=== PATIENT | female | born 1965 | race Caucasian/White ===

== ENCOUNTER 2017-09-17 05:26 | Inpatient (IN) ==
[2017-09-17 05:46] VITALS: BMI 27.9
[2017-09-17] MEDS ORDERED: CEFAZOLIN 1 G INJECTION IVP ONE (05:52)
[2017-09-17] MEDS ORDERED: ACETAMINOPHEN 500 MG TABLET PO ONE (06:00)
[2017-09-17] MEDS ORDERED: METOCLOPRAMIDE 10mg/2ml INJECTION IVP ONE (06:00)
[2017-09-17] MEDS ORDERED: LIDOCAINE 1% (10mg/ml) 2mL INJ PF SDV ID ONE (06:00)
[2017-09-17] MEDS ORDERED: ONDANSETRON 4 MG/2 ML INJECTION IVP ONE (06:00)
[2017-09-17] MEDS ORDERED: TRANEXAMIC ACID 1,000 MG in NS 100 ML IV ONE ×2 (06:00→07:00)
[2017-09-17] MEDS ORDERED: MELOXICAM 15 MG TABLET PO ONE (06:00)
[2017-09-17] MEDS ORDERED: FAMOTIDINE PB 20 MG/50 ML BAG IV ONE (06:00)
[2017-09-17] MEDS ORDERED: DEXAMETHASONE 4 MG/ML INJECTION IVP ONE (06:00)
[2017-09-17] MEDS: LR 1,000 ML IV SCH ×2 (06:06→08:00)
[2017-09-17] MEDS: NOZIN NASAL SWAB NAS SCH ×6 (06:09→21:37)
--- NOTE | 2017-09-17 06:41 | Anesthesia Preoperative Report ---
Anesthesia Preoperative Record - Date and Time Date: 09/17/17 Preoperative Diagnosis: Lt AGUSTIN M16.12 NPO Since Date: 09/16/17 NPO Since Time: 00:00 Allergies/Adverse Reactions: Allergies Allergy/AdvReac Type Severity Reaction Status Date / Time morphine Allergy Unknown Itching Verified 08/21/17 13:58 codeine AdvReac Unknown 'I felt Verified 08/21/17 13:58 weird' - Vital Signs Vital Signs: Temperature 97.9 F 09/17/17 05:44 Pulse Rate 76 09/17/17 06:09 Respiratory Rate 14 09/17/17 05:44 Blood Pressure 142/90 H 09/17/17 05:44 Pulse Oximetry 100 09/17/17 05:44 Height and Weight: Height 1.6 m Weight 71.5 kg Body Mass Index 27.9 - Medications Inpatient Medications: Current Medications Epinephrine HCl 0.25 mg/Bupivacaine HCl 30 ml/Ketorolac Tromethamine 60 mg/ Sodium Chloride 62.25 mls @ 0 mls/hr OPSITE INTRAOP ONE; Per Protocol PRN Reason: Protocol Stop: 09/17/17 08:01 Tranexamic Acid 1,000 mg/ (Sodium Chloride) 110 mls @ 660 mls/hr IV INTRAOP ONE Stop: 09/17/17 07:09 Lactated Ringer's (Lactated Ringers) 1,000 mls @ 50 mls/hr IV .Q20H [facility] Last Admin: 09/17/17 06:06 Dose: 50 mls/hr Isopropyl Alcohol (Nozin Nasal Swab) 1 each KEVIN Q1M LOLIS Stop: 09/17/17 10:03 Last Admin: 09/17/17 06:17 Dose: 1 each Sodium Chloride (Iv Flush) 10 - 80 ml IV PRN PRN PRN Reason: Flushing Home Medications: Home Medications Medication Instructions Recorded Confirmed Type Claritin (Loratadine) 10 mg tablet 10 mg PO Q24H PRN 01/23/17 09/17/17 History bee pollen 550 mg capsule 550 mg PO BID cap 01/23/17 09/17/17 History vitamins B1 B6 B12 tablet 1 tab PO DAILY 02/05/17 09/17/17 History Acetaminophen [Tylenol] 1,000 mg PO Q5H PRN 08/21/17 09/17/17 History Agilease 1 cap PO BID 08/21/17 09/17/17 History Calcitriol [Rocaltrol] 0.25 mcg PO 3XW 08/21/17 09/17/17 History Calcium Carbonate [Calcium] 1,000 mg PO DAILY 08/21/17 09/17/17 History Levothyroxine Tab [Synthroid] 125 mcg PO HS 08/21/17 09/17/17 History [place]'s wort 300 mg capsule 300 mg PO DAILY 08/21/17 09/16/17 History Cholecalciferol (Vitamin D3) 1 cap PO DAILY 09/17/17 09/17/17 History [Vitamin D3] Is Patient on Beta Renetta?: No - Medical History Respiratory: DENIES: Sleep Apnea Neuro/Musculoskeletal: Reports: HX.MS.OSAR (left hip) Renal/Endocrine: Reports: Thyroid Disease (Hx thyroid cancer) Other History: Reports: Cancer (THYROID-TREATED W/ SURGERY AND RADIOACTIVE COCKTAIL) - Surgical History Endocrine Surgery/Treatments: Reports: Thyroidectomy (x2) Anesthesia Reactions: None Hx Family Anesthesia Reaction: No History of Motion Sickness: No - Social History Smoking Status: Never smoker Hx Chewing Tobacco Use: No Second Hand Exposure: No Substance Use Type: does not use Alcohol Intake Frequency: does not drink - Pertinent Findings EKG: Sinus Rhythm - Physical Exam Respiratory Exam: Present: lungs clear, bilateral breath sounds equal Cardiovascular Exam: Present: regular rate and rhythm - Airway Assessment Mallampati Score: II Neck Extension: good Overall Assessment: no airway concerns - ASA ASA Score: 2 - Plan Anesthesia: General Inhalation Gases, Neuroaxial Regional/Trunk Block: Spinal - Discussion Discussion: Discussed risks/options/alternatives of anesthesia and questions answered. Patient consents. Nursing pain assessment noted. Present for Discussion: family member Attestation Statement: Prior to the delivery of any anesthetic medication, I examined the patient, developed the plan, obtained the patient's consent and discussed the risk and benefits of the procedure with the patient/guardian. - Additional Information Seen by Anesthesia: Yes
[2017-09-17] MEDS ORDERED: FentaNYL 250 MCG/5 ML INJECTION ONE (06:52)
[2017-09-17] MEDS ORDERED: MIDAZOLAM 2mg/2ml INJECTION ONE (06:52)
[2017-09-17] MEDS ORDERED: KETAMINE 500 MG/10 ML INJECTION ONE (06:53)
[2017-09-17] MEDS ORDERED: BUPIVACAINE 0.5% (5mg/ml) PF 30ml INJ SDV ONE (06:53)
[2017-09-17] MEDS ORDERED: PROPOFOL 500 MG/50 ML VIAL ONE ×2 (06:54→08:48)
[2017-09-17] MEDS ORDERED: SEVOFLURANE 250ml LIQUID IH ONE (06:55)
[2017-09-17] MEDS ORDERED: VANCOMYCIN 1,000 MG INJECTION ONE (07:37)
[2017-09-17] MEDS ORDERED: VANCOMYCIN 1,000 MG INJECTION IAR ONE (07:49)
[2017-09-17] MEDS ORDERED: EPINEPHrine PF 0.25 MG, BUPIVACAINE 0.25% PF 30 ML, KETOROLAC INJ 60 MG in NS 30 ML OPSITE ONE (08:00)
--- NOTE | 2017-09-17 09:07 | Operative Note ---
- Procedure Preoperative Diagnosis: Left hip primary degenerative joint disease Postoperative Diagnosis: Same as preoperative diagnosis. Surgeon: Carlin Barber MD Internet Retailer: Rosanna Lowe Complications: None. Anesthesia: Spinal. Estimated Blood Loss: See Anesthesia Record. Fluids: Please see Anesthesia Record. Description of Procedure: Mrs. Saunders and her left hip were identified and marked in the preoperative holding area. She was brought back to the operating suite and spinal anesthetic was administered. She was then placed in a lateral decubitus position with her left hip up. The left lower extremity was prepped and draped in my normal sterile fashion. Timeout was performed. The [employer] robotic arm was used to assist with the surgery. A pelvic array was placed into the iliac crest through three small incisions. A direct superior approach was utilized. An approximately 13 cm incision was made in the skin and dissection carried down to the muscle fascia which was then split in line with skin incision. A The short external rotators were identified and tagged and detached. A capsulotomy was performed and the hip dislocated. A femoral neck osteotomy was performed at the pre-templated level measuring down from the femoral head 47mm. The head was removed and acetabulum exposed. Labrum was removed. She had a large anterior labral tear. The acetabulum was then registered with the robot. The robotic arm was then used to ream with a 47 reamer. I then placed a 48 mm Trident cup in 40 of tilt and 25 of anteversion. A liner was then placed. The proximal femur was exposed and prepared with a cookie cutter followed by reaming and broaching to a size 3. Planer was then used. We trialed with a 0 head. This was short but stable weak retrial with a +5 head this felt much better as far as leg length. After thorough irrigation a final Accolade 2 size 3 stem with 132 neck was placed. Leg length and offset were checked with the robot and were good. A final +5 ceramic head was placed and the hip reduced. Betadine solution was used to irrigate throughout the case. It was followed by normal saline irrigation. Joint cocktail was injected throughout soft tissue. The capsulotomy was repaired with Ethibond. Short external rotators were also repaired with Ethibond. 1 g of vancomycin powder was placed into the wound. The muscle fascia was then repaired with #1 Vicryl. I then left my front office medical assistant to close the subcutaneous tissue with 2-0 Vicryl followed by running 4-0 Monocryl skin followed by Dermabond and a sterile dressing. The patient with any placed back into supine position and taken to recovery room in the care of anesthesia.
[2017-09-17] MEDS ORDERED: SALINE FLUSH 10ml SYRINGE IV PRN (09:56)
--- NOTE | 2017-09-17 10:01 | Anesthesia Postoperative Note ---
- Date and Time Date: 09/17/17 Time: 10:00 - Status Patient Participated in Evaluation: Patient Participated in Person Vital Signs: Temperature 97.9 F 09/17/17 05:44 Pulse Rate 76 09/17/17 06:09 Respiratory Rate 14 09/17/17 05:44 Blood Pressure 142/90 H 09/17/17 05:44 Pulse Oximetry 100 09/17/17 05:44 Respiratory Function: Airway Patent, Regular Respirations Cardiovascular Function: Regular Pulse Mental Status: Alert and Oriented Pain Intensity: 0 Hydration: IV Infusing Complications During Recover: None Apparent - Follow-Up Instructions Instructions: Per Surgeon
--- NOTE | 2017-09-17 10:18 | XRay Report ---
Indication: postoperative image PROCEDURE: XR pelvis w/ 1 view LT hip: Encounter: Initial Comparison: August 21, 2017 Findings: Postoperative changes of left total hip replacement are seen. There is expected postoperative subcutaneous gas. No evidence of hardware failure or acute fracture. No retained radiopaque surgical instruments or sponges seen. Impression: New left total hip prosthesis without evidence of immediate complication. .
[2017-09-17] MEDS ORDERED: NOZIN NASAL SWAB NAS ONE (10:41)
[2017-09-17] MEDS ORDERED: LORazepam 1 MG TABLET PO PRN (10:41)
[2017-09-17] MEDS ORDERED: DiphenhydrAMINE 50 MG/ML INJECTION IVP PRN (10:41)
[2017-09-17] MEDS ORDERED: DiphenhydrAMINE 25 MG CAPSULE PO PRN (10:41)
[2017-09-17] MEDS: NS 1,000 ML IV SCH (11:06)
[2017-09-17] MEDS: TRAMADOL 50 MG TABLET PO PRN ×2 (11:31→19:41)
[2017-09-17] MEDS: ACETAMINOPHEN 325 MG TABLET PO SCH ×3 (13:47→20:35)
[2017-09-17] MEDS: CEFAZOLIN 1 G in NS 100 ML IV SCH ×2 (14:25→22:26)
[2017-09-17] MEDS: ONDANSETRON 4 MG/2 ML INJECTION IVP PRN ×2 (15:15→19:41)
[2017-09-17] MEDS: NAPROXEN 220 MG TABLET PO SCH (18:03)
[2017-09-17] MEDS: ASPIRIN *EC* 81 MG TABLET PO SCH (20:35)
[2017-09-17] MEDS: DOCUSATE SODIUM 100 MG CAPSULE PO SCH (20:35)
[2017-09-17] MEDS ORDERED: SENNOSIDES 8.6 MG TABLET PO SCH (21:00)
[2017-09-17] MEDS ORDERED: LEVOTHYROXINE 125 MCG TABLET PO SCH (21:00)
[2017-09-18] MEDS: NS 1,000 ML IV SCH ×3 (03:45→13:41)
[2017-09-18] MEDS: TRAMADOL 50 MG TABLET PO PRN (04:59)
[2017-09-18] MEDS: NOZIN NASAL SWAB NAS SCH ×2 (04:59→13:01)
--- NOTE | 2017-09-18 08:00 | Orthopedic Progress Note ---
Date: Date: 09/18/17 Time: 756 Subjective/Severity of Illness: Mariama is lying in bed this morning. States she did really well overnight, ambulated the halls multiple times. Pain has been well controlled on Tramadol. Denies CP, SOA, nausea. Had one episode of vomiting after using IS last night. Otherwise, tolerating PO since. Orthopedic Exam Vital signs: Temperature 98.6 F 09/18/17 03:53 Pulse Rate 82 09/18/17 03:53 Respiratory Rate 16 09/18/17 03:53 Blood Pressure 134/69 09/18/17 03:53 Pulse Oximetry 99 09/18/17 03:53 - Constitutional General Appearance: Present: alert, orientated x3, well developed, well nourished - Respiratory Exam Present: non-labored - Cardiovascular Exam Present: pedal pulses intact - Extremities Exam Present: pulses intact. Absent: calf tenderness, Rekha's sign - Dressing Dressing: dry, intact, no drainage Comments: mepilex left hip, telfa dressing has scant serosanguineous drainage. - Neurological Exam Present: intact to light touch, no deficits - Labs Result Diagrams: 09/18/17 04:12 09/18/17 04:12 Abnormal lab results 09/18/17 09/18/17 Range/Units 04:12 04:12 Hgb 11.3 L (12-16) GM/DL Creatinine 0.6 L (0.7-1.2) mg/dL Glucose 114 H (65-110) MG/DL H & H 09/18/17 Range/Units 04:12 Hgb 11.3 L (12-16) GM/DL Orthopedic Assessment and Plan (1) Primary osteoarthritis of left hip Status: Acute Assessment and Plan: Current anti-coagulation protocol with ASA 81mg BID for VTE prophylaxis. SCD's for added protection PT/OT services to improve independent function. Discharge Planning per Case Management. - Anticoagulation Therapy Anticoagulation: ASA 81 mg PO BID x6 weeks Hospital Course Summary Disclaimer: The visit summary below is not to be considered part of the above Progress Note.
[2017-09-18] MEDS: ONDANSETRON 4 MG/2 ML INJECTION IVP PRN (08:33)
[2017-09-18 08:34] VITALS: RESP 18
[2017-09-18] MEDS ORDERED: POLYETHYL GLYCOL 3350 17gm PACKET PO SCH (09:00)
[2017-09-18] MEDS: NAPROXEN 220 MG TABLET PO SCH (09:03)
[2017-09-18] MEDS: ACETAMINOPHEN 325 MG TABLET PO SCH ×2 (09:03→12:47)
[2017-09-18] MEDS: DOCUSATE SODIUM 100 MG CAPSULE PO SCH (09:04)
[2017-09-18] MEDS: ASPIRIN *EC* 81 MG TABLET PO SCH (09:04)
[2017-09-18] MEDS ORDERED: SENNOSIDES 8.6 MG TABLET PO PRN (09:08)
[2017-09-18 11:57] VITALS: O2SAT 100
--- NOTE | 2017-09-18 12:27 | Discharge Summary ---
Orthopedic Discharge Info Date of admission: 09/17/17 05:26 Anticipated date of discharge: 09/18/17 Primary care physician: Ravi Cook MD Attending Physician: Emory Barber MD Consults: 09/17/17 05:49 Consult to Anesthesiology [CONS] Routine Reason For Exam: Preoperative Assessment 09/17/17 10:41 Case Management Consult [CONS] Routine Reason For Exam: Discharge Planning DME-Walker [CONS] Routine Height: 5 ft 3 in Weight: 71.5 kg Total Joint Outpatient Therapy [CONS] Routine Comment: Remove dressing in 2 weeks - Discharge Diagnosis (1) Primary osteoarthritis of left hip Status: Acute - Procedures Procedures: Left AGUSTIN 09/15/17. - Laboratory Result Diagrams: 09/18/17 04:12 09/18/17 04:12 Laboratory: Abnormal lab results 09/18/17 09/18/17 Range/Units 04:12 04:12 Hgb 11.3 L (12-16) GM/DL Creatinine 0.6 L (0.7-1.2) mg/dL Glucose 114 H (65-110) MG/DL H & H 09/18/17 Range/Units 04:12 Hgb 11.3 L (12-16) GM/DL Orthopedic Discharge HPI - HPI Comments This patient was admitted for elective surgical tx of end stage degenerative joint disease that failed to respond to conservative treatment. Further details of this is found in the admission H&P. Orthopedic Hospital Course Hospital course: 09/18/17 12:25 After appropriate preoperative clearance and signing of operative consent, the patient was given IV antibiotics, according to orthopedic protocol. The patient was taken to the operating room and underwent elective total hip arthroplasty. Following surgery, antibiotics were discontinued less than 24 hours according to joint protocol. Appropriate anticoagulants were initiated and SCDs added for DVT prevention. The dressing was clean, dry, and intact. Pain control was obtained via multimodal approach. Bowel motivation addressed with scheduled and PRN medications. Early mobilization was initiated through PT services. Discharge arrangements made by a collaborative effort between the patient and Case Management. Follow-up is scheduled in 2-3 weeks. Discharge instructions given by orthopedic providers and nursing staff at discharge. Discharge condition was good. Care extended to > 2 midnight stays?: No Discharge Plan - Med Rec/Dispo Referrals/Follow Up: Emory Barber MD [Physician] - 10/09/17 9:00 am Anjel[place] [facility] [place] Additional Instructions: [facility] ON 09/20/2017 AT 10:45AM FOR PHYSICAL THERAPY CASSID[place]. PHONE , OPTION 3. Prescriptions: New Acetaminophen [Tylenol] 650 mg PO QID tablet Docusate Sodium [Colace] 100 mg PO BID capsule Milk of Magnesia [Mom] 30 ml PO DAILY udc Naproxen [Aleve (Naproxen) 220 mg] 440 mg PO BIDWM tablet PEG 3350 17gm PACKET [Miralax] 17 gm PO DAILY packet Tramadol [Ultram] 50 - 100 mg PO Q6H PRN #60 tab PRN Reason: Pain Aspirin *EC* [Ecotrin] 81 mg PO BID tablet Continue Calcitriol [Rocaltrol] 0.25 mcg PO 3XW Levothyroxine Tab [Synthroid] 125 mcg PO HS Agilease 1 cap PO BID Cholecalciferol (Vitamin D3) [Vitamin D3] 1 cap PO DAILY Cyanocobalamin/Folic Acid [Vitamin R03-Sjsbc Acid Tablet] 1,000 mg PO DAILY Calcium Carbonate [Calcium] 1,000 mg PO DAILY Claritin (Loratadine) 10 mg tablet 10 mg PO Q24H PRN PRN Reason: Allergy Symptoms Beattie's wort 300 mg capsule 300 mg PO DAILY Discontinued Acetaminophen [Tylenol] 1,000 mg PO Q5H PRN PRN Reason: Pain No Action bee pollen 550 mg capsule 550 mg PO BID cap vitamins B1 B6 B12 tablet 1 tab PO DAILY - Disposition 01 Discharged Home, Self-Care - Dismissal Complete Discharge Instructions are:: Complete
[2017-09-18 14:20] VITALS: BP 153/73; PULSE 99; TEMP 97.2
[2017-09-19] MEDS ORDERED: BISACODYL 10 MG SUPPOSITORY RECTALLY SCH (20:00)
== END 2017-09-18 15:56 | disposition home or self-care (01) | DRG 470 ==
LOC: NMC.PERIOP 05:26 → SRG 10:14
PROVIDERS: ADMIT Orthopaedic Surgery; ATTEND Orthopaedic Surgery